=== PATIENT | male | born 1975 | race Hispanic/Latino ===

== ENCOUNTER 2019-03-24 15:15 | Emergency (ER) | payer SELFPAY ==
[2019-03-24 16:24] LABS: #Basophils 0.1 thou/uL (0.0-0.2); #Eosinphils 0.3 thou/uL (0.0-0.7); #Lymphocytes 1.6 thou/uL (1.20-3.40); #Monocytes 0.6 thou/uL (0.11-0.59); #Neutrophils 4.2 thou/uL (1.40-6.50); %Basophils 1.5 % (0.0-1.0); %Eosinophils 4.8 % (0.0-10.0); %Lymphocytes 22.9 % (21.0-51.0); %Monocytes 9.2 % (0.0-10.0); %Neutrophils 61.6 % (42.0-75.0); ALT (SGPT) 9 U/L (8-55); AST (SGOT) 8 U/L (5-34); Alkaline Phosphatase 121 U/L (40-150); Anion Gap 17 mmol/L (10-20); BUN (Urea Nitrogen) 14 mg/dL (8.9-20.6); Bilirubin, Total 0.8 mg/dL (0.2-1.2); Calc. Creatinine Clearance 0 mL/min (70-130); Carbon Dioxide 23 mmol/L (22-29); Chloride 92 mmol/L (98-107); Estimated GFR-MDRD 59; Globulin 3.4 g/dL (2.4-3.5); Mean Corpuscular HGB CONC 33.8 g/dL (32.0-36.0); Mean Corpuscular Hemoglobin 29.3 pg (27.0-31.0); Mean Corpuscular Volume 86.8 fL (78.0-98.0); Mean Platelet Volume 8.9 fL (7.4-10.4); Platelet Count 221 thou/uL (130-400); Potassium 4.9 mmol/L (3.5-5.1); Protein, Total 7.4 g/dL (6.0-8.3); RBC Distribution Width 10.7 % (11.5-14.5); Red Blood Cell (RBC) Count 4.43 mill/uL (4.70-6.10); White Blood Cell (WBC) Count 6.9 thou/uL (4.8-10.8)
[2019-03-24 16:28] LABS: Glucose 766 mg/dL (70-105); INR-International Normal Ratio 0.9; Prothrombin Time 12.4 SEC (12.0-14.7); Sodium 127 mmol/L (136-145)
--- NOTE | 2019-03-24 16:32 | RAD ---
PORTABLE CHEST: 03/24/19 INDICATION: Dyspnea. Lungs are clear. Heart and mediastinum unremarkable. IMPRESSION: No acute findings. POS: OFF
--- NOTE | 2019-03-24 16:48 | CT ---
CT HEAD WITHOUT CONTRAST: 03/24/19 Multiple axial tomograms obtained without IV enhancement. INDICATIONS: Headache. Vertebrae maintain normal height and alignment. No hemorrhage, mass, or infarct seen. Sinuses are shlomo ar. IMPRESSION: No acute abnormality. POS: OFF
[2019-03-24] MEDS ORDERED: Sodium Chloride 0.9% 2,000 ML ONE (16:52)
[2019-03-24 17:09] LABS: Bilirubin Negative (Negative); Blood, Urine Negative (Negative); Clarity Clear (Clear); Glucose, Urine (Dipstick) 500 mg/dL (Negative); Leukocyte Negative (Negative); Nitrite Negative (Negative); Protein, Urine (Dipstick) Negative (Neg-Trace); Urobilinogen 0.2 mg/dL (0.2-1.0); pH, Urine 5.5 (5.0-9.0)
[2019-03-24 17:24] LABS: Base Excess-Venous -1.4 mmol/L (-2.0 to 3.0); Bicarbonate (HCO3v) 22.7 mmol/L (22.0-28.0); CO2 Tension (PvCO2) 35.9 mmHg (40.0-50.0); Calcium, Ionized 1.14 mmol/L (See Comments:); Chloride 97 mmol/L (98-107); Hemoglobin - Calc 14.8 g/dL (14.0-18.0); Potassium 4.6 mmol/L (3.5-5.1); Sodium 131 mmol/L (138-145); T. Carbon Dioxide 23.8 mmol/L (22.0-28.0)
[2019-03-24] MEDS ORDERED: Insulin Regular 300 UNITS/3 ML VIAL ONE (18:26)
[2019-03-24] MEDS ORDERED: Sodium Chloride 0.9% 1,000 ML ONE (18:26)
== END 2019-03-24 18:46 | disposition short-term general hospital (02) ==
LOC: MADERS 15:15
DX: E11.65 Type 2 diabetes mellitus with hyperglycemia (principal); D64.9 Anemia, unspecified; E87.1 Hypo-osmolality and hyponatremia; N28.9 Disorder of kidney and ureter, unspecified
CPT/HCPCS: 36415; 36416; 70450; 71045; 80053; 81003; 82330; 82803; 83735; 83930; 84484; 85025; 85610; 93005; 96361; 96374; J1815; J7050

== ENCOUNTER 2020-01-02 20:50 | Emergency (ER) | payer SELFPAY ==
[2020-01-02] MEDS ORDERED: Sodium Chloride 0.9% 1,000 ML ONE (21:14)
[2020-01-02] MEDS ORDERED: Ondansetron PF 4 MG/2 ML Vial ONE (21:15)
[2020-01-02] MEDS ORDERED: Ketorolac Tromethamine 30 MG/ML VIAL ONE (21:15)
[2020-01-02 21:33] LABS: #Basophils 0.1 thou/uL (0.0-0.2); #Eosinphils 0.3 thou/uL (0.0-0.7); #Lymphocytes 1.4 thou/uL (1.20-3.40); #Monocytes 0.5 thou/uL (0.11-0.59); #Neutrophils 7.2 thou/uL (1.40-6.50); %Eosinophils 2.8 % (0.0-10.0); %Monocytes 5.5 % (0.0-10.0); %Neutrophils 75.6 % (42.0-75.0); Hemoglobin 14.6 g/dL (14.0-18.0); Mean Corpuscular HGB CONC 34.6 g/dL (32.0-36.0); Mean Corpuscular Hemoglobin 30.8 pg (27.0-31.0); Mean Platelet Volume 8.6 fL (7.4-10.4); Platelet Count 248 thou/uL (130-400); RBC Distribution Width 10.6 % (11.5-14.5); Red Blood Cell (RBC) Count 4.72 mill/uL (4.70-6.10); White Blood Cell (WBC) Count 9.5 thou/uL (4.8-10.8)
[2020-01-02 21:52] LABS: ALT (SGPT) 13 U/L (8-55); AST (SGOT) 10 U/L (5-34); Albumin 4.3 g/dL (3.5-5.0); Alkaline Phosphatase 100 U/L (40-110); Anion Gap 15 mmol/L (10-20); BUN (Urea Nitrogen) 9 mg/dL (8.9-20.6); Bilirubin, Total 0.9 mg/dL (0.2-1.2); CK (CPK) 83 U/L (30-200); Calc. Creatinine Clearance 0 mL/min (70-130); Calcium 8.6 mg/dL (7.8-10.44); Carbon Dioxide 24 mmol/L (22-29); Chloride 100 mmol/L (98-107); Estimated GFR-MDRD Greater than 90; Globulin 2.9 g/dL (2.4-3.5); Glucose 233 mg/dL (70-105); Lipase 280 U/L (8-78); Potassium 3.7 mmol/L (3.5-5.1); Protein, Total 7.2 g/dL (6.0-8.3); Sodium 135 mmol/L (136-145)
[2020-01-02 21:53] LABS: Base Excess-Venous 0.4 mmol/L (-2.0 to 3.0); Bicarbonate (HCO3v) 26.4 mmol/L (22.0-28.0); vO2 Saturation-calc 76.5 % (60.0-85.0)
[2020-01-02 21:54] LABS: Calcium, Ionized 1.12 mmol/L (See Comments:); Chloride 96 mmol/L (98-107); Hemoglobin - Calc 14.6 g/dL (14.0-18.0); Potassium 3.5 mmol/L (3.5-5.1); Sodium 134 mmol/L (138-145); T. Carbon Dioxide 27.9 mmol/L (22.0-28.0)
[2020-01-02] MEDS ORDERED: Morphine 4 MG/ML VIAL ONE (22:41)
== END 2020-01-03 00:59 | disposition short-term general hospital (02) ==
LOC: MADERS 20:50
DX: K80.20 Calculus of gallbladder without cholecystitis without obstruction (principal); E11.9 Type 2 diabetes mellitus without complications; I10 Essential (primary) hypertension
CPT/HCPCS: 80053; 82330; 82550; 82803; 83605; 83690; 84484; 85025; 93005; 96361; 96374; 96375; J1885; J2270; J2405; J7050

== ENCOUNTER 2020-02-02 12:18 | Emergency (ER) | payer SELFPAY ==
[2020-02-02 13:05] LABS: #Basophils 0.1 thou/uL (0.0-0.2); #Eosinphils 0.3 thou/uL (0.0-0.7); #Lymphocytes 1.2 thou/uL (1.20-3.40); #Monocytes 0.8 thou/uL (0.11-0.59); #Neutrophils 6.5 thou/uL (1.40-6.50); %Basophils 1.1 % (0.0-1.0); %Eosinophils 3.7 % (0.0-10.0); %Lymphocytes 13.7 % (21.0-51.0); %Monocytes 8.7 % (0.0-10.0); %Neutrophils 72.8 % (42.0-75.0); Hemoglobin 13.4 g/dL (14.0-18.0); Mean Corpuscular HGB CONC 34.8 g/dL (32.0-36.0); Mean Corpuscular Hemoglobin 30.7 pg (27.0-31.0); Mean Corpuscular Volume 88.3 fL (78.0-98.0); Platelet Count 226 thou/uL (130-400); RBC Distribution Width 10.1 % (11.5-14.5); Red Blood Cell (RBC) Count 4.37 mill/uL (4.70-6.10); White Blood Cell (WBC) Count 8.9 thou/uL (4.8-10.8)
[2020-02-02] MEDS ORDERED: Sodium Chloride 0.9% 1,000 ML ONE (13:11)
[2020-02-02] MEDS ORDERED: Promethazine HCl 25 MG/ML VIAL ONE (13:11)
[2020-02-02 13:21] LABS: ALT (SGPT) 11 U/L (8-55); AST (SGOT) 7 U/L (5-34); Alkaline Phosphatase 81 U/L (40-110); Anion Gap 14 mmol/L (10-20); BUN (Urea Nitrogen) 12 mg/dL (8.9-20.6); Bilirubin, Total 0.7 mg/dL (0.2-1.2); Calc. Creatinine Clearance 0 mL/min (70-130); Calcium 8.7 mg/dL (7.8-10.44); Carbon Dioxide 28 mmol/L (22-29); Chloride 100 mmol/L (98-107); Estimated GFR-MDRD 80; Globulin 3.3 g/dL (2.4-3.5); Glucose 298 mg/dL (70-105); Lipase 580 U/L (8-78); Potassium 3.8 mmol/L (3.5-5.1); Protein, Total 7.3 g/dL (6.0-8.3); Sodium 138 mmol/L (136-145)
[2020-02-02 13:28] LABS: Bilirubin Negative (Negative); Blood, Urine Negative (Negative); Clarity Clear (Clear); Glucose, Urine (Dipstick) 500 mg/dL (Negative); Leukocyte Negative (Negative); Nitrite Negative (Negative); Protein, Urine (Dipstick) Trace mg/dL (Neg-Trace)
[2020-02-02] MEDS ORDERED: Morphine 4 MG/ML VIAL ONE (13:42)
== END 2020-02-02 14:23 | disposition short-term general hospital (02) ==
LOC: MADERS 12:18
DX: K85.90 Acute pancreatitis without necrosis or infection, unspecified (principal); E11.9 Type 2 diabetes mellitus without complications; I10 Essential (primary) hypertension
CPT/HCPCS: 80053; 81003; 83690; 85025; 96365; 96375; J2270; J2550; J7050

== ENCOUNTER 2021-08-24 10:01 | Emergency (ER) | payer SELFPAY ==
[2021-08-25 13:26] LABS: SARS-CoV-2 PCR by NAA Not Detected (NotDetected)
== END 2021-08-24 10:36 | disposition home or self-care (01) ==
LOC: MADERS 10:01
DX: R00.0 Tachycardia, unspecified (principal); Z20.822 Contact with and (suspected) exposure to COVID-19; I10 Essential (primary) hypertension; E11.9 Type 2 diabetes mellitus without complications; Z79.4 Long term (current) use of insulin; Z87.19 Personal history of other diseases of the digestive system; Z79.82 Long term (current) use of aspirin
CPT/HCPCS: 99283; U0003; U0005

== ENCOUNTER 2021-08-27 13:46 | Emergency (ER) | payer SELFPAY ==
[2021-08-28 12:06] LABS: SARS-CoV-2 PCR by NAA Not Detected (NotDetected)
== END 2021-08-27 14:21 | disposition home or self-care (01) ==
LOC: MADERS 13:46
DX: Z20.822 Contact with and (suspected) exposure to COVID-19 (principal); E11.9 Type 2 diabetes mellitus without complications; I10 Essential (primary) hypertension; Z79.4 Long term (current) use of insulin
CPT/HCPCS: 99283; U0003; U0005